=== PATIENT | male | born 1965 | race Caucasian/White ===

== ENCOUNTER 2020-06-26 15:03 | Emergency (ER) | payer OTHER ==
[~2020-06-26] VITALS: Ht 182.9 cm; Wt 61.2 kg
[2020-06-26] MEDS ORDERED: IBUPROFEN 800800 M1 PO (17:09)
[2020-06-26] MEDS ORDERED: HYDROCODON-ACE1 EAC7 PO (17:12)
[2020-06-26 17:25] VITALS: BP 119/71
== END 2020-06-26 17:26 | disposition home or self-care (01) ==
LOC: M.ERS 15:03
DX: S32.010A Wedge compression fracture of first lumbar vertebra, initial encounter for closed fracture (principal); X50.9XXA Other and unspecified overexertion or strenuous movements or postures, initial encounter; Y93.89 Activity, other specified; Y92.89 Other specified places as the place of occurrence of the external cause; Y99.8 Other external cause status